=== PATIENT | female | born 1990 | race Caucasian/White ===

== ENCOUNTER 2016-10-03 09:11 | Emergency (ER) | payer OTHER ==
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
[~2016-10-03 09:11] MED LIST: ACETAMINOPHEN PO; CIPRO PO; COLACE PO; HYDROCODON-ACE1 EAC7 PO; KEFLEX PO; LORTAB 5/500 TA1 TA2 PO; NIFEREX-150 CAP1 CAP PO; PHENERGAN PO; VOLTAREN75 MG PO
== END 2016-10-03 11:39 | disposition home or self-care (01) ==
LOC: CED 09:11
DX: S06.0X0A Concussion without loss of consciousness, initial encounter (principal); S20.212A Contusion of left front wall of thorax, initial encounter; S50.02XA Contusion of left elbow, initial encounter; S50.01XA Contusion of right elbow, initial encounter; S90.32XA Contusion of left foot, initial encounter; Z79.2 Long term (current) use of antibiotics; Z88.1 Allergy status to other antibiotic agents; Z88.2 Allergy status to sulfonamides; Z91.040 Latex allergy status; Z88.8 Allergy status to other drugs, medicaments and biological substances; Y04.0XXA Assault by unarmed brawl or fight, initial encounter; Y92.009 Unspecified place in unspecified non-institutional (private) residence as the place of occurrence of the external cause
CPT/HCPCS: 70450; 73070; 73630; 99284